=== PATIENT | male | born 1990 | race Hispanic/Latino ===

== ENCOUNTER 2018-08-01 18:44 | Emergency (ER) | payer SELFPAY ==
[2018-08-01 18:53] VITALS: BP 146/75; PULSE 87; RESP 16; TEMP 98.4; O2SAT 98
--- NOTE | 2018-08-01 20:18 | ED PDOC ---
HPI: Dental Pain/Injury Time Seen by Provider: 08/01/18 18:58 Chief Complaint (Nursing): Dental Pain Chief Complaint (Provider): Dental Pain History Per: Patient History/Exam Limitations: no limitations Onset/Duration Of Symptoms: Days (x4) Current Symptoms Are (Timing): Still Present Additional Complaint(s): 27 year old male presents to the ED for dental pain. Patient states that five months ago, his dentist told him that his right upper wisdom tooth was impacted , and for the past four days, he has felt progressively worsening pain to the area. He reports taking Tylenol and Motrin without relief. Otherwise, denies fever, trauma, and headache. PMD: none provided Past Medical History Reviewed: Historical Data, Nursing Documentation, Vital Signs Vital Signs: Last Vital Signs Temp 98.4 F 08/01/18 18:52 Pulse 87 08/01/18 18:52 Resp 16 08/01/18 18:52 BP 146/75 08/01/18 18:52 Pulse Ox 98 08/01/18 18:52 - Medical History PMH: No Chronic Diseases - Surgical History Other surgeries: wisdom teeth extraction - Family History Family History: States: Unknown Family Hx - Home Medications Home Medications: Ambulatory Orders Medication Instructions Recorded Acetaminophen with Codeine 1 tab PO Q4 PRN #10 tablet 08/01/18 [Tylenol with Codeine #3 Tablet] Amoxicillin [Amoxil 500 mg Cap] 500 mg PO BID #20 cap 08/01/18 Naproxen [Naprosyn] 500 mg PO BID PRN #10 tab 08/01/18 - Allergies Allergies/Adverse Reactions: Allergies Allergy/AdvReac Type Severity Reaction Status Date / Time No Known Allergies Allergy Verified 08/01/18 18:53 Review of Systems ROS Statement: Except As Marked, All Systems Reviewed And Found Negative Constitutional: Negative for: Fever ENT: Positive for: Other (right upper tooth ache) Neurological: Negative for: Headache Physical Exam - Reviewed Nursing Documentation Reviewed: Yes Vital Signs Reviewed: Yes - Physical Exam Appears: Positive for: In Acute Distress (minimal painful) Eye Exam: Positive for: Normal appearance, EOMI, PERRL ENT: Positive for: Other (Poor dentition, positive tooth decay right maxillary molar and premolar teeth without gingival swelling). Negative for: Pharyngeal Erythema, Tonsillar Swelling Neurologic/Psych: Positive for: Alert, Oriented (x3) - ECG O2 Sat by Pulse Oximetry: 98 (RA) Pulse Ox Interpretation: Normal - Progress ED Course And Treament: Pt. searched on [place] [employer] which show no narcotic Rx within the last year. Medical Decision Making Medical Decision Making: Time: 1907 Initial Impression: dental pain Initial Plan: --Toradol 30mg IM --Ultram 50mg PO Scribe Attestation: Documented by Josi Doan, acting as a scribe for Brian Rodriguez PA-C. Provider Scribe Attestation: All medical record entries made by the Scribe were at my direction and personally dictated by me. I have reviewed the chart and agree that the record accurately reflects my personal performance of the history, physical exam, medical decision making, and the department course for this patient. I have also personally directed, reviewed, and agree with the discharge instructions and disposition. Disposition - Clinical Impression Clinical Impression: Toothache - Patient ED Disposition Is Patient to be Admitted: No - Disposition Referrals: [facility] [Outside] Disposition: Routine/Home Disposition Time: 20:00 Condition: STABLE Additional Instructions: ANIVAL SEGURA, thank you for letting us take care of you today. Your provider was Celine Dover MD and you were treated for MOUTH PAIN. The emergency medical care you received today was directed at your acute symptoms. If you were prescribed any medication, please fill it and take as directed. It may take several days for your symptoms to resolve. Return to the Emergency Department if your symptoms worsen, do not improve, or if you have any other problems. Please contact your doctor or call one of the physicians/clinics you have been referred to that are listed on the Patient Visit Information form that is included in your discharge packet. Bring any paperwork you were given at discharge with you along with any medications you are taking to your follow up visit. Our treatment cannot replace ongoing medical care by a primary care provider outside of the emergency department. Thank you for allowing the [facility] team to be part of your care today. If you had an X-Ray or CT scan: A Radiologist will review the ED reading if any change in treatment is needed we will contact you. If you had a blood, urine, or wound culture: It will take several days for the results, if any change in treatment is needed we will contact you. If you had an STI test: It will take 48 hours for the results. Please call after 1 week if you have not heard back. Prescriptions: Acetaminophen with Codeine [Tylenol with Codeine #3 Tablet] 1 tab PO Q4 PRN #10 tablet PRN Reason: Pain Amoxicillin [Amoxil 500 mg Cap] 500 mg PO BID #20 cap Naproxen [Naprosyn] 500 mg PO BID PRN #10 tab PRN Reason: Pain Instructions: Dental Pain (DC) Forms: [employer] (Lebanese)
== END 2018-08-01 20:19 | disposition home or self-care (01) ==
LOC: H.ER 18:44
DX: K08.89 Other specified disorders of teeth and supporting structures (principal)
CPT/HCPCS: 96372; 99282; J1885